=== PATIENT | male | born 1950 | race Caucasian/White ===

== ENCOUNTER 2019-02-15 12:02 | Emergency (ER) | payer OTHER ==
[2019-02-15 12:52] VITALS: BP 118/68
--- NOTE | 2019-02-15 14:16 | UC ---
Complaint Male HPI - HPI Summary HPI Summary: Pt presents at request of PCP , Marissa Alarcon at [facility] in [place]. Pty has had sudden onset of hematuria intermittently and was here earlier providing a urine sample. He returned to our clinic and gave another urine sample as the previous one was over and hour old without refrigeration. First sample no visible hematuria, second sample, obvious hematuria. Pt denies pain, fever, chills or dysuria. Pt has hx of prostate cancer - History of Current Complaint Chief Complaint: UCRespiratory Stated Complaint: URINARY COMPLAINT Time Seen by Provider: 02/15/19 13:06 Hx Obtained From: Patient Onset/Duration: Sudden Onset, Still Present Timing: Intermittent Severity Initially: Moderate Severity Currently: Moderate Pain Intensity: 0 Location: None Associated Signs And Symptoms: Positive: Hematuria - Risk Factors Testicular Torsion: Negative - Allergies/Home Medications Allergies/Adverse Reactions: Allergies Allergy/AdvReac Type Severity Reaction Status Date / Time No Known Allergies Allergy Verified 02/15/19 12:36 Home Medications: Home Medications Acetaminophen [Pain Relief] 500 mg PO PRN 02/15/19 [History] Albuterol HFA INHALER* [Ventolin HFA Inhaler*] 2 puff INH Q4H PRN 02/15/19 [ History Confirmed 02/15/19] Budesonide/Formote 160/4.5(NF) [Symbicort 160/4.5 (NF)] 1 puff INH BID 02/15/19 [History Confirmed 02/15/19] Cholecalciferol (Vitamin D3) [Vitamin D3] 1,000 unit PO DAILY 02/15/19 [History Confirmed 02/15/19] Lisinopril TAB* [Prinivil TAB*] 10 mg PO DAILY 02/15/19 [History Confirmed 02/15] Loratadine [Claritin 10 MG CAP] 10 mg PO DAILY 02/15/19 [History Confirmed 02/15] Montelukast Sodium TAB* [Singulair TAB*] 10 mg PO DAILY 02/15/19 [History Confirmed 02/15/19] Simvastatin [Zocor] 0.5 tab PO DAILY 02/15/19 [History Confirmed 02/15/19] Terazosin CAP* [Hytrin CAP*] 10 mg PO BEDTIME 02/15/19 [History Confirmed ] Theophylline Anhydrous [Theophylline ER] 400 mg PO DAILY 02/15/19 [History Confirmed 02/15/19] Tiotropium CAP.INH* [Spiriva CAP.INH*] 1 cap.inh INH DAILY 02/15/19 [History Confirmed 02/15/19] PMH/Surg Hx/FS Hx/Imm Hx Previously Healthy: Yes Cardiovascular History: Cardiac Disease, Hypertension Cancer History: Other - prostate - Surgical History Surgical History: Yes Surgery Procedure, Year, and Place: PROSTATE SEED IMPLANT - Family History Known Family History: Positive: Cardiac Disease - Social History Occupation: Employed Full-time Lives: With Family Alcohol Use: Occasionally Substance Use Type: None Smoking Status (MU): Former Smoker Have You Smoked in the Last Year: No When Did the Patient Quit Smoking/Using Tobacco: 2018 Review of Systems All Other Systems Reviewed And Are Negative: Yes Constitutional: Positive: Negative Skin: Positive: Negative Eyes: Positive: Negative ENT: Positive: Negative Respiratory: Positive: Negative Cardiovascular: Positive: Negative Gastrointestinal: Positive: Negative Genitourinary: Positive: Hematuria Motor: Positive: Negative Neurovascular: Positive: Negative Musculoskeletal: Positive: Negative Neurological: Positive: Negative Psychological: Positive: Negative Is Patient Immunocompromised?: No Physical Exam Triage Information Reviewed: Yes Appearance: Well-Appearing Vital Signs: Initial Vital Signs Temp 98.3 F 02/15/19 12:42 Pulse 70 02/15/19 12:42 Resp 20 02/15/19 12:42 BP 118/68 02/15/19 12:42 Pulse Ox 96 02/15/19 12:42 Vital Signs Reviewed: Yes Eye Exam: Normal ENT Exam: Normal Dental Exam: Normal Neck exam: Normal Respiratory Exam: Normal Respiratory: Positive: No respiratory distress Cardiovascular Exam: Normal Abdominal Exam: Normal Abdomen Description: Positive: Nontender Musculoskeletal Exam: Normal Neurological Exam: Normal Psychological Exam: Normal Skin Exam: Normal Complaint Male Course/Dx - Course Course Of Treatment: I spoke with Marissa Alarcon on the phone and discussed my findings on PE and current UA and what services I could provide at clinic today. She asked if we could draw a BMP for future plans of doing CT with contrast. I discussed this with the pt and he verbalized understanding and agreed to plan of care. - Differential Dx/Diagnosis Differential Diagnosis/HQI/PQRI: Urinary Tract Infection, Other - hematuria Provider Diagnosis: Hematuria Discharge - Sign-Out/Discharge Documenting (check all that apply): Patient Departure All imaging exams completed and their final reports reviewed: No Studies - Discharge Plan Condition: Stable Disposition: HOME Patient Education Materials: Hematuria (ED) Referrals: Marissa Alarcon [Primary Care Provider] - As Soon As Possible Additional Instructions: Please follow up with your PCP as soon as possible. If your symptoms worsen please go directly to the closest emergency room as soon as possible. - Billing Disposition and Condition Condition: STABLE Disposition: Home
[2019-02-15 19:37] LABS: Calcium 9.6 mg/dL (8.6-10.3); Potassium 4.7 mmol/L (3.5-5.0)
[2019-02-15 19:43] LABS: BUN/Creatinine Ratio 15.1 (8-20); EGFR African American 129.7 (>60); EGFR Non-African American 107.2 (>60)
== END 2019-02-15 14:21 | disposition home or self-care (01) ==
LOC: UCCORT 12:02
DX: R31.9 Hematuria, unspecified (principal); Z85.46 Personal history of malignant neoplasm of prostate; I11.9 Hypertensive heart disease without heart failure; Z87.891 Personal history of nicotine dependence
CPT/HCPCS: 36415; 80048; 81003; 99211; G0463

== ENCOUNTER 2019-10-15 14:52 | Emergency (ER) | payer OTHER ==
[2019-10-15 16:02] VITALS: BP 115/81
--- NOTE | 2019-10-15 16:09 | UC ---
Respiratory Complaint HPI - HPI Summary HPI Summary: Pt presents with c/o cough, sob X 1 week. Pt has hx of COPD, asthma and pneumonia. - History of Current Complaint Stated Complaint: CONGESTION, COUGH Time Seen by Provider: 10/15/19 15:47 Hx Obtained From: Patient Onset/Duration: Sudden Onset, Lasting Days, Still Present Timing: Intermittent Episodes Severity Initially: Mild Severity Currently: Moderate Pain Intensity: 0 Character: Cough: Nonproductive Aggravating Factors: Allergens, Exertion, Deep Breaths, Recumbent Position Alleviating Factors: Nothing Associated Signs And Symptoms: Positive: Wheezing, Nasal Congestion Related History: Seasonal Allergies - Risk Factors Pulmonary Embolism Risk Factors: Negative Cardiac Risk Factors: Hypertension, Elevated Lipids, CAD Pseudomonas Risk Factors: Chronic Lung Disease Tuberculosis Risk Factors: Negative - Allergies/Home Medications Allergies/Adverse Reactions: Allergies Allergy/AdvReac Type Severity Reaction Status Date / Time No Known Allergies Allergy Verified 10/15/19 15:57 Home Medications: Home Medications Albuterol HFA INHALER* [Ventolin HFA Inhaler*] 2 puff INH Q4H PRN 10/15/19 [ History Confirmed 10/15/19] Budesonide/Formote 160/4.5(NF) [Symbicort 160/4.5 (NF)] 1 puff INH BID 10/15/19 [History Confirmed 10/15/19] Cholecalciferol TAB* [Vitamin D TAB*] 1,000 unit PO DAILY 10/15/19 [History Confirmed 10/15/19] DOXYcycline CAP(*) [DOXYcycline 100MG CAP(*)] 100 mg PO Q12H #20 cap 10/15/19 [ Rx] Lisinopril [Zestril] 20 mg PO DAILY 10/15/19 [History Confirmed 10/15/19] LoraTADine TAB(NF) [Claritin 10 MG TAB(NF)] 10 mg PO DAILY 10/15/19 [History Confirmed 10/15/19] Montelukast Sodium TAB* [Singulair 10 MG TAB*] 10 mg PO BEDTIME 10/15/19 [ History Confirmed 10/15/19] Simvastatin TAB(NF) [Zocor 20 MG (NF)] 20 mg PO 1700 10/15/19 [History Confirmed 10/15/19] Terazosin CAP* [Hytrin CAP 5 MG*] 10 mg PO BEDTIME 10/15/19 [History Confirmed 10/15/19] Theophylline Anhydrous [Theophylline] 400 mg PO DAILY 10/15/19 [History Confirmed 10/15/19] Tiotropium CAPSULE (NF) [Spiriva CAPSULE (NF)] 1 cap.inh INH DAILY 10/15/19 [ History Confirmed 10/15/19] predniSONE 10 mg TAB [Deltasone 10 MG TAB*] 30 mg PO DAILY #18 tab 10/15/19 [Rx] PMH/Surg Hx/FS Hx/Imm Hx Previously Healthy: Yes Endocrine History: Dyslipidemia Cardiovascular History: Cardiac Disease Respiratory History: COPD, Asthma - Surgical History Surgical History: Yes Surgery Procedure, Year, and Place: PROSTATE SEED IMPLANT - Family History Known Family History: Positive: Cardiac Disease - Social History Occupation: Retired Lives: With Family Alcohol Use: Rare Substance Use Type: None Smoking Status (MU): Former Smoker Have You Smoked in the Last Year: No When Did the Patient Quit Smoking/Using Tobacco: 2018 - Immunization History Vaccination Up to Date: Yes Review of Systems All Other Systems Reviewed And Are Negative: Yes Constitutional: Positive: Fatigue Skin: Positive: Negative Eyes: Positive: Negative ENT: Positive: Negative Respiratory: Positive: Shortness Of Breath, Cough Cardiovascular: Positive: Negative Gastrointestinal: Positive: Negative Genitourinary: Positive: Negative Motor: Positive: Negative Neurovascular: Positive: Negative Musculoskeletal: Positive: Negative Neurological/Mental Status: Positive: Negative Psychological: Positive: Negative Is Patient Immunocompromised?: No Physical Exam Triage Information Reviewed: Yes Appearance: Ill-Appearing Vital Signs: Initial Vital Signs Temp 97.9 F 10/15/19 15:59 Pulse 69 10/15/19 15:59 Resp 16 10/15/19 15:59 BP 115/81 10/15/19 15:59 Pulse Ox 96 10/15/19 15:59 Vital Signs Reviewed: Yes Eye Exam: Normal ENT: Positive: Nasal congestion Dental Exam: Normal Neck exam: Normal Respiratory: Positive: Decreased breath sounds Cardiovascular Exam: Normal Musculoskeletal Exam: Normal Neurological Exam: Normal Psychological Exam: Normal Skin Exam: Normal Respiratory Course/Dx - Differential Dx/Diagnosis Differential Diagnosis/HQI/PQRI: Bronchitis, Exacerbation Of COPD Provider Diagnosis: Asthma exacerbation in COPD, Bronchitis Discharge ED - Sign-Out/Discharge Documenting (check all that apply): Patient Departure All imaging exams completed and their final reports reviewed: No Studies - Discharge Plan Condition: Stable Disposition: HOME Prescriptions: DOXYcycline CAP(*) [DOXYcycline 100MG CAP(*)] 100 mg PO Q12H #20 cap predniSONE 10 mg TAB [Deltasone 10 MG TAB*] 30 mg PO DAILY #18 tab Patient Education Materials: Acute Bronchitis (ED) Referrals: Marissa Alarcon [Primary Care Provider] - If Needed - Billing Disposition and Condition Condition: STABLE Disposition: Home - Attestation Statements Provider Attestation: I was available for consultation for this patient. I did not evaluate the patient or participate in any medical decision making or disposition decisions unless I am specifically named in the chart as having consulted on the patient. If I have consulted on the patient, please see my own ED note on the patient encounter. Willian Mcclain MD
== END 2019-10-15 16:18 | disposition home or self-care (01) ==
LOC: UCCORT 14:52
DX: J44.1 Chronic obstructive pulmonary disease with (acute) exacerbation (principal); E78.5 Hyperlipidemia, unspecified; Z79.899 Other long term (current) drug therapy; Z79.52 Long term (current) use of systemic steroids; Z87.891 Personal history of nicotine dependence
CPT/HCPCS: 99212; G0463